=== PATIENT | female | born 1965 | race Caucasian/White ===

== ENCOUNTER 2016-08-28 01:23 | Observation (INO) | payer OTHER, MEDICARE ==
[~2016-08-28] VITALS: Ht 167.6 cm; Wt 116.6 kg
[2016-08-28] MEDS ORDERED: IRON1TAB60 PO (01:38)
[2016-08-28] MEDS ORDERED: SODIUM CHLORIDE FLUSH 10ML SYR IVF ONE (02:00)
[2016-08-28] MEDS ORDERED: SODIUM CHLORIDE 0.9% 1,000ML IVBOLUS ONE (02:00)
[2016-08-28] MEDS ORDERED: ASPIRIN 81 MG TABLET CHEW PO ONE (02:00)
[2016-08-28] MEDS ORDERED: ASPIRIN 81 MG TABLET CHEW ONE (02:09)
[2016-08-28 02:20] LABS: ASPARTATE AMINO TRANSFERASE 21 U/L (15-37); BLOOD UREA NITROGEN 12 mg/dL (7-18)
[2016-08-28 02:31] LABS: IS PT STATUS REG ER OR PRE ER? YES
[2016-08-28] MEDS ORDERED: SODIUM CHLORIDE 0.9% 1,000 ML IV ONE (03:13)
[2016-08-28] MEDS ORDERED: ONDANSETRON 2MG/ML, 2ML IVPush PRN (03:30)
[2016-08-28] MEDS ORDERED: MORPHINE SULFATE 4 MG/ML, 1ML IVPush PRN (03:30)
[2016-08-28] MEDS ORDERED: ONDANSETRON ODT 4 MG PO PRN (04:30)
[2016-08-28] MEDS ORDERED: DOCUSATE 100 MG CAPSULE PO PRN (04:30)
[2016-08-28] MEDS ORDERED: ACETAMINOPHEN 325 MG TABLET PO PRN (04:30)
[2016-08-28] MEDS ORDERED: BISACODYL 10 MG SUPP PR PRN (04:30)
[2016-08-28] MEDS ORDERED: POLYETHYLENE GLYCOL 17 GM PACKET PO PRN (04:30)
[2016-08-28] MEDS ORDERED: TRAZODONE 50MG TABLET PO PRN (04:30)
[2016-08-28] MEDS ORDERED: hydrALAzine 20 MG/ML, 1ML IVPush PRN (04:30)
[2016-08-28 04:34] VITALS: BP 157/90
[2016-08-28] MEDS: NICOTINE 14MG/24 HR PATCH.TD24 TD SCH (04:34)
[2016-08-28] MEDS: ATORVASTATIN 80 MG TABLET PO SCH ×2 (05:03→20:15)
[2016-08-28] MEDS: ENOXAPARIN 40 MG/0.4 ML SQ SCH (05:04)
[2016-08-28] MEDS: SODIUM CHLORIDE 0.9% 1,000 ML IV SCH ×3 (05:11→23:39)
[2016-08-28 07:22] VITALS: BP 135/86
[2016-08-28] MEDS: ASPIRIN 81 MG TABLET CHEW PO SCH (08:55)
[2016-08-28] MEDS: MULTIVITAMINS WITH IRON TABLET PO SCH (08:55)
[2016-08-28] MEDS ORDERED: REGADENOSON 0.4 MG/5 ML SYRINGE ONE (08:55)
[2016-08-28 09:26] LABS: IS PT STATUS REG ER OR PRE ER? NO
[2016-08-28] MEDS ORDERED: CALCIUM CARBONATE 500 MG TAB.CHEW PO PRN (10:00)
[2016-08-28 14:47] VITALS: BP 123/78
[2016-08-28 15:16] LABS: IS PT STATUS REG ER OR PRE ER? NO
[2016-08-28 18:56] VITALS: BP 144/80
[2016-08-29 01:36] VITALS: BP 119/80
[2016-08-29] MEDS: NICOTINE 14MG/24 HR PATCH.TD24 TD SCH (03:48)
[2016-08-29 08:04] VITALS: BP 132/85
[2016-08-29] MEDS: ASPIRIN 81 MG TABLET CHEW PO SCH (10:02)
[2016-08-29] MEDS: MULTIVITAMINS WITH IRON TABLET PO SCH (10:02)
[2016-08-29] MEDS: ENOXAPARIN 40 MG/0.4 ML SQ SCH (10:03)
[2016-08-29] MEDS: SODIUM CHLORIDE 0.9% 1,000 ML IV SCH ×2 (10:08→20:08)
[2016-08-29 15:48] VITALS: BP 126/78
[2016-08-29 19:03] VITALS: BP 115/76
[2016-08-29] MEDS: ATORVASTATIN 80 MG TABLET PO SCH (20:19)
[2016-08-30 01:47] VITALS: BP 117/80
[2016-08-30] MEDS: NICOTINE 14MG/24 HR PATCH.TD24 TD SCH (04:30)
[2016-08-30] MEDS: SODIUM CHLORIDE 0.9% 1,000 ML IV SCH ×2 (06:08→09:03)
[2016-08-30 08:05] VITALS: BP 147/83
[2016-08-30] MEDS: ENOXAPARIN 40 MG/0.4 ML SQ SCH (09:00)
[2016-08-30] MEDS: MULTIVITAMINS WITH IRON TABLET PO SCH (09:02)
[2016-08-30] MEDS: ASPIRIN 81 MG TABLET CHEW PO SCH (09:02)
[2016-08-30] MEDS ORDERED: HEPARIN 1,000 UNITS/ML, 10ML ONE (13:15)
[2016-08-30] MEDS ORDERED: FENTANYL PF 100 MCG/2ML ONE (13:15)
[2016-08-30] MEDS ORDERED: NITROGLYCERIN 5 MG/ML, 10ML ONE (13:15)
[2016-08-30] MEDS ORDERED: TICAGRELOR 90 MG TABLET ONE (13:15)
[2016-08-30] MEDS ORDERED: BIVALIRUDIN 250 MG ONE (13:15)
[2016-08-30] MEDS ORDERED: VERAPAMIL 2.5 MG/ML, 2ML ONE (13:15)
[2016-08-30] MEDS ORDERED: MIDAZOLAM 1 MG/ML, 5ML ONE (13:15)
[2016-08-30] MEDS ORDERED: LIDOCAINE 2%, 20ML ONE (13:16)
[2016-08-30 15:27] VITALS: BP 138/90
[2016-08-30 19:10] VITALS: BP 107/69
== END 2016-08-30 22:51 | disposition home or self-care (01) ==
LOC: ED 01:37 → INTOOBSV 03:13 → EDIP 03:13 → 5SO 04:18
PROVIDERS: ADMIT Internal Medicine; ATTEND Internal Medicine
DX: R07.89 Other chest pain (principal); E88.09 Other disorders of plasma-protein metabolism, not elsewhere classified; D50.9 Iron deficiency anemia, unspecified; I10 Essential (primary) hypertension; E66.9 Obesity, unspecified; R56.9 Unspecified convulsions; F17.210 Nicotine dependence, cigarettes, uncomplicated; Z86.73 Personal history of transient ischemic attack (TIA), and cerebral infarction without residual deficits; Z82.49 Family history of ischemic heart disease and other diseases of the circulatory system
CPT/HCPCS: 36415; 71010; 78452; 80053; 80061; 84439; 84443; 84484; 85025; 85610; 93005; 93017; 93306; 93458; 96372; 99156; 99285; A9502; C1894; C9898; G0378; J1644; J1650; J2250; J2785; J3010; J3490; J7030; Q9967; J0583

== ENCOUNTER 2016-09-17 07:13 | Emergency (ER) | payer MEDICARE, OTHER ==
[~2016-09-17] VITALS: Ht 167.6 cm; Wt 113.5 kg
[~2016-09-17 07:13] MED LIST: IRON1TAB60 PO
[2016-09-17 07:17] VITALS: BP 131/84
== END 2016-09-17 09:09 | disposition home or self-care (01) ==
LOC: ED 08:10
DX: M77.01 Medial epicondylitis, right elbow (principal); I10 Essential (primary) hypertension
CPT/HCPCS: 29105; 99284

== ENCOUNTER 2018-05-17 10:03 | Emergency (ER) | payer OTHER ==
--- NOTE | 2018-05-17 13:13 | NUR ---
SEE DOWN TIME PROCEDURE PRIOR TO CURRENT NOTES. PT GIVEN DISCHARGE INSTURCTIONS AND FOLLOW UP INSTRUCTIONS. PT VERBALIZED UNDERSTANDING. PT UP AMBULATORY AND STABLE ON FEET.
[2018-05-17 13:35] LABS: MEAN CORPUSCULAR VOLUME 56.7 fL (80-100); MEAN PLATELET VOLUME 7.7 fL (7.4-10.4); PLATELET COUNT 374 x10^3/uL (130-400); RED BLOOD COUNT 4.35 x10^6/uL (3.82-5.3); RED CELL DISTRIBUTION WIDTH 19.3 % (9.6-15.2)
[2018-05-17 13:50] LABS: ANION GAP 6 mmol/L (5-15); CALCIUM 8.4 mg/dL (8.5-10.1); CHLORIDE 109 mmol/L (98-107); CREATININE 0.82 mg/dL (0.55-1.02)
[2018-05-17 14:45] LABS: MD NO
[2018-05-17 15:35] LABS: TROPONIN I 0.041 ng/mL (0.000-0.045)
== END 2018-05-17 13:29 | disposition home or self-care (01) ==
LOC: ED 12:53
DX: R07.89 Other chest pain (principal); I10 Essential (primary) hypertension; Z86.73 Personal history of transient ischemic attack (TIA), and cerebral infarction without residual deficits
CPT/HCPCS: 36415; 71045; 80048; 84484; 85025; 93005; 99284